=== PATIENT | male | born 1935 | race Caucasian/White ===

== ENCOUNTER 2016-08-19 19:00 | Outpatient (CLI) | payer MEDICARE, MEDICAID | END 2016-08-19 19:01 | disposition home or self-care (01) | DX: N39.0 Urinary tract infection, site not specified (principal) ==

== ENCOUNTER 2016-10-01 19:30 | Outpatient (CLI) | payer MEDICARE, MEDICAID | END 2016-10-01 19:31 | disposition home or self-care (01) | DX: R35.0 Frequency of micturition (principal) ==

== ENCOUNTER 2017-02-08 07:34 | Outpatient (CLI) | payer MEDICARE, MEDICAID ==
[2017-02-08 00:52] LABS: BILIRUBIN,URINE NEGATIVE (NEGATIVE); PH,URINE 5.5 PH (5.0-7.5)
[2017-02-08 01:00] LABS: UA w/ MICROSCOPIC CHARGE YES; WBC,URINE >25 /HPF (0-3)
[2017-02-08 01:01] LABS: UR CULTURE IF IND INDICATED
== END 2017-02-08 07:35 | disposition home or self-care (01) ==
LOC: LAB.R 07:34
DX: N39.0 Urinary tract infection, site not specified (principal)
CPT/HCPCS: 81001; 81003; 87077; 87086

== ENCOUNTER 2017-07-13 20:46 | Outpatient (CLI) | payer MEDICARE, MEDICAID | END 2017-07-13 20:47 | disposition critical access hospital (66) | LOC: EMS 20:46 | PROVIDERS: ATTEND Surgery | DX: M25.522 Pain in left elbow (principal); W18.30XA Fall on same level, unspecified, initial encounter; Y92.129 Unspecified place in nursing home as the place of occurrence of the external cause | CPT/HCPCS: A0425; A0429 ==

== ENCOUNTER 2017-07-13 20:53 | Emergency (ER) | payer MEDICARE, MEDICAID ==
--- NOTE | 2017-07-13 21:02 | ED Physician Documentation ---
PD HPI UPPER EXT INJURY - Stated complaint Stated Complaint: GLF/L ARM SKIN TEAR - History obtained from History obtained from: Patient - History of Present Illness Location: Left, Elbow Type of injury: Fall (fell out of wheelchair) Where injury occurred: Other (COW) Timing - onset: How many minutes ago (approximately 30-40 minutes [employer]) Timing - details: Abrupt onset Pain level now: 2 Improved by: Rest Worsened by: Moving, Palpating Associated symptoms: Swelling Similar symptoms before: Has not had sx before Recently seen: Not recently seen - Additonal information Additional information: fell out of wheelchair tonight, c/o left elbow pain and swelling. Patient is right-hand dominant. Review of Systems Musculoskeletal: reports: Joint pain, Joint swelling. denies: Neck pain, Back pain Neurologic: denies: Focal weakness, Numbness, Headache, Head injury PD PAST MEDICAL HISTORY - Past Medical History Past Medical History: Yes Cardiovascular: Hypertension, High cholesterol - Present Medications Home Medications: Ambulatory Orders Medication Instructions Recorded Confirmed Aspirin [Elkin] 325 01/12/13 01/12/13 Docusate Sodium 250 mg PO BID 01/12/13 01/12/13 Finasteride 01/12/13 01/12/13 Losartan [Cozaar] 25 mg PO DAILY 01/12/13 01/12/13 Mirtazapine 30 01/12/13 01/12/13 Multivitamin [Multi-Day Vitamins] 1 each PO 01/12/13 01/12/13 Sennosides [Senokot] 8.6 01/12/13 01/12/13 Simvastatin 20 01/12/13 01/12/13 Tamsulosin [Flomax] 0.4 mg PO BID 01/12/13 01/12/13 Triamterene/Hydrochlorothiazid 1 each PO 01/12/13 01/12/13 [Triamterene-Hctz 37.5-25 mg Tb] amLODIPine [Norvasc] 10 mg PO BID 01/12/13 01/12/13 - Allergies Allergies/Adverse Reactions: Allergies Allergy/AdvReac Type Severity Reaction Status Date / Time No Known Drug Allergies Allergy Verified 01/12/13 17:28 PD ED PE NORMAL - Vitals Vital signs reviewed: Yes - General General: Alert and oriented X 3, No acute distress, Well developed/nourished - Neck Neck: No bony TTP - Neuro Neuro: Alert and oriented X 3, No motor deficit, No sensory deficit Eye Opening: Spontaneous Motor: Obeys Commands Verbal: Oriented GCS Score: 15 PD ED PE EXPANDED - Extremities Extremities: Other (left elbow swelling and tenderness extensor surface with abrasions. ROM left elbow is intact although pain is exacerbated with movement) Results - Vitals Vitals: Vital Signs - 24 hr 07/13/17 07/14/17 20:55 00:15 Temperature 36.1 C L Heart Rate 90 79 Respiratory 16 18 Rate Blood Pressure 197/73 H 169/76 H O2 Saturation 99 99 Oxygen O2 Source Room air - Rads (name of study) left elbow xrays Radiology: Prelim report reviewed, See rad report PD MEDICAL DECISION MAKING - ED course Complexity details: reviewed results, re-evaluated patient, considered differential, d/w patient Departure - Departure Disposition: 01 Home, Self Care Clinical Impression: Abrasion Elbow injury Qualifiers: Encounter type: initial encounter Laterality: left Qualified Code(s): S59.902A - Unspecified injury of left elbow, initial encounter Condition: Good Instructions: ED Abrasion, ED Bandage Elastic Wrap, ED Contusion Elbow, ED Immunization Tetanus and FU Follow-Up: Dom Frausto MD [Primary Care Provider] - Within 1 week (If not improving ) Discharge Date/Time: 07/14/17 00:15
[2017-07-13] MEDS ORDERED: ACETAMINOPHEN 325 MG TABLET PO STA (21:03)
--- NOTE | 2017-07-13 21:53 | XRAY Preliminary Report ---
Exam: XR ELBOW 3 VIEW LT IMPRESSION: 1. No acute osseous abnormalities are identified. 2. Marked soft tissue swelling along the medial and dorsal left elbow. [facility] SITE ID: [id number]
[2017-07-13] MEDS ORDERED: ACETAMINOPHEN 325 MG TABLET PO ONE (21:56)
--- NOTE | 2017-07-13 21:56 | XRAY Report ---
EXAM: LEFT ELBOW RADIOGRAPHY EXAM DATE: 07/13/2017 09:30 PM. CLINICAL HISTORY: Fall, injury. COMPARISON: None. TECHNIQUE: 3 views. FINDINGS: Bones: No acute fracture or bony lesion. Olecranon enthesophyte is noted. Joints: Mild degenerative changes of the left elbow. No dislocation. Optimal view is not obtained and assessment for elbow effusion. Soft Tissues: Marked soft tissue swelling along the dorsal and medial aspect of the left elbow. IMPRESSION: 1. No acute osseous abnormalities are identified. 2. Marked soft tissue swelling along the medial and dorsal left elbow. [facility] Referring Provider Line: [phone] SITE ID: [id number]
[2017-07-13] MEDS ORDERED: TETANUS/DIPHTHERIA/PERTUSSIS 0.5 ML SYRINGE IM ONE ×2 (22:17→22:27)
[2017-07-13] MEDS ORDERED: BACITRACIN OINT TOP STA (22:17)
[2017-07-13] MEDS ORDERED: BACITRACIN OINT TOP ONE (22:26)
[2017-07-14 00:22] VITALS: BP 169/76
== END 2017-07-14 00:15 | disposition home or self-care (01) ==
LOC: EDUNIT# → ED 20:53
DX: S50.312A Abrasion of left elbow, initial encounter (principal); S59.902A Unspecified injury of left elbow, initial encounter; W05.0XXA Fall from non-moving wheelchair, initial encounter; Z23 Encounter for immunization; I10 Essential (primary) hypertension; E78.00 Pure hypercholesterolemia, unspecified
CPT/HCPCS: 73080; 90471; 90715; 99282; 99284; A9270

== ENCOUNTER 2017-11-15 08:00 | Outpatient (CLI) | payer MEDICARE, MEDICAID ==
[2017-11-15 15:32] LABS: BASOPHILS % (AUTO) 0.6 %; EOSINOPHILS # (AUTO) 0.5 10^3/uL (0.0-0.7); EOSINOPHILS % (AUTO) 6.4 %; HGB - HEMOGLOBIN 13.7 g/dL (14.0-18.0); LYMPHOCYTES # (AUTO) 1.6 10^3/uL (1.5-3.5); LYMPHOCYTES % (AUTO) 21.1 %; MEAN CORPUSCULAR HEMOGLOBIN 31.1 pg (27.0-31.0); MEAN CORPUSCULAR HGB CONC 32.8 g/dL (32.0-36.0); MEAN CORPUSCULAR VOLUME 94.7 fL (80.0-94.0); MEAN PLATELET VOLUME 8.5 fL (7.4-11.4); MONOCYTES # (AUTO) 0.8 10^3/uL (0.0-1.0); MONOCYTES % (AUTO) 10.8 %; NEUTROPHILS # (AUTO) 4.5 10^3/uL (1.5-6.6); NEUTROPHILS % (AUTO) 61.1 %; PLT - PLATELET COUNT 201 10^3/uL (130-450); RED CELL DISTRIBUTION WIDTH 14.6 % (12.0-15.0); WHITE BLOOD COUNT 7.4 x10^3/uL (4.8-10.8)
[2017-11-15 15:44] LABS: ALBUMIN 3.6 g/dL (3.2-5.5); ALBUMIN/GLOBULIN RATIO 1.1 (1.0-2.2); BILIRUBIN,TOTAL 0.3 mg/dL (0.2-1.0); CALCIUM 8.6 mg/dL (8.5-10.3); CREATININE 2.9 mg/dL (0.6-1.2); TOTAL PROTEIN 6.9 g/dL (6.7-8.2)
== END 2017-11-15 08:01 | disposition home or self-care (01) ==
LOC: LAB.R 08:00
DX: N18.4 Chronic kidney disease, stage 4 (severe) (principal); I25.9 Chronic ischemic heart disease, unspecified
CPT/HCPCS: 80053; 85025

== ENCOUNTER 2018-01-26 15:30 | Outpatient (CLI) | payer MEDICARE, MEDICAID ==
[2018-01-26 17:48] LABS: ALBUMIN 3.1 g/dL (3.2-5.5); ALBUMIN/GLOBULIN RATIO 1.1 (1.0-2.2); ALKALINE PHOSPHATASE 69 IU/L (42-121); ALT ALANINE AMINOTRANSFERASE 14 IU/L (10-60); AST ASPARTATE AMINOTRANSFERASE 17 IU/L (10-42); BILIRUBIN,TOTAL < 0.2 mg/dL (0.2-1.0); BUN - BLOOD UREA NITROGEN 49 mg/dL (6-20); CALCIUM 8.3 mg/dL (8.5-10.3); CARBON DIOXIDE - CO2 22 mmol/L (21-32); CHLORIDE 106 mmol/L (101-111); CREATININE 2.7 mg/dL (0.6-1.2); GFR - MDRD 23 (>89); GLUCOSE 136 mg/dL (70-100); SODIUM 138 mmol/L (135-145); TOTAL PROTEIN 5.9 g/dL (6.7-8.2)
[2018-01-26 19:03] LABS: BASOPHILS # (AUTO) 0.1 10^3/uL (0.0-0.1); BASOPHILS % (AUTO) 0.7 %; EOSINOPHILS # (AUTO) 0.5 10^3/uL (0.0-0.7); EOSINOPHILS % (AUTO) 6.5 %; HGB - HEMOGLOBIN 13.1 g/dL (14.0-18.0); LYMPHOCYTES # (AUTO) 1.5 10^3/uL (1.5-3.5); LYMPHOCYTES % (AUTO) 18.2 %; MEAN CORPUSCULAR HEMOGLOBIN 32.5 pg (27.0-31.0); MEAN CORPUSCULAR HGB CONC 33.6 g/dL (32.0-36.0); MEAN CORPUSCULAR VOLUME 96.7 fL (80.0-94.0); MEAN PLATELET VOLUME 8.3 fL (7.4-11.4); MONOCYTES # (AUTO) 0.9 10^3/uL (0.0-1.0); MONOCYTES % (AUTO) 11.1 %; NEUTROPHILS # (AUTO) 5.1 10^3/uL (1.5-6.6); NEUTROPHILS % (AUTO) 63.5 %; PLATELET ESTIMATE, MANUAL NORMAL (130-450,000) (NORMAL); PLATELET MORPHOLOGY NORMAL APPEARANCE (NORMAL); PLT - PLATELET COUNT 214 10^3/uL (130-450); RED BLOOD COUNT 4.02 10^6/uL (4.70-6.10); RED CELL DISTRIBUTION WIDTH 13.5 % (12.0-15.0); WHITE BLOOD COUNT 8.1 x10^3/uL (4.8-10.8)
== END 2018-01-26 15:31 ==
LOC: LAB.R 15:30
DX: N18.4 Chronic kidney disease, stage 4 (severe) (principal); I25.9 Chronic ischemic heart disease, unspecified
CPT/HCPCS: 80053; 85025

== ENCOUNTER 2018-04-21 21:05 | Outpatient (CLI) | payer MEDICARE, MEDICAID | END 2018-04-21 21:06 | disposition home or self-care (01) | LOC: LAB.R 21:05 | DX: I12.9 Hypertensive chronic kidney disease with stage 1 through stage 4 chronic kidney disease, or unspecified chronic kidney disease (principal); N18.4 Chronic kidney disease, stage 4 (severe) | CPT/HCPCS: 80048; 84443 ==

== ENCOUNTER 2018-04-24 21:55 | Outpatient (CLI) | payer MEDICARE, MEDICAID ==
[2018-04-24 22:53] LABS: CALCIUM 8.2 mg/dL (8.5-10.3); CREATININE 3.3 mg/dL (0.6-1.2)
== END 2018-04-24 21:56 | disposition home or self-care (01) ==
LOC: LAB.R 21:55
PROVIDERS: ATTEND Family Medicine
DX: I12.9 Hypertensive chronic kidney disease with stage 1 through stage 4 chronic kidney disease, or unspecified chronic kidney disease (principal); N18.4 Chronic kidney disease, stage 4 (severe)
CPT/HCPCS: 80048; 84443

== ENCOUNTER 2018-05-09 21:50 | Outpatient (CLI) | payer MEDICARE, MEDICAID ==
[2018-05-09 22:55] LABS: CALCIUM 8.1 mg/dL (8.5-10.3); CREATININE 2.6 mg/dL (0.6-1.2)
== END 2018-05-09 21:51 | disposition home or self-care (01) ==
LOC: LAB.R 21:50
DX: I10 Essential (primary) hypertension (principal)
CPT/HCPCS: 80048

== ENCOUNTER 2018-09-02 08:00 | Outpatient (CLI) | payer MEDICARE, MEDICAID ==
[2018-09-02 23:49] LABS: BASOPHILS % (AUTO) 0.6 %; EOSINOPHILS # (AUTO) 0.3 10^3/uL (0.0-0.7); EOSINOPHILS % (AUTO) 5.3 %; HGB - HEMOGLOBIN 11.7 g/dL (14.0-18.0); LYMPHOCYTES % (AUTO) 15.8 %; MEAN CORPUSCULAR HEMOGLOBIN 32.4 pg (27.0-31.0); MEAN CORPUSCULAR HGB CONC 34.1 g/dL (32.0-36.0); MEAN CORPUSCULAR VOLUME 94.9 fL (80.0-94.0); MEAN PLATELET VOLUME 8.4 fL (7.4-11.4); MONOCYTES # (AUTO) 0.5 10^3/uL (0.0-1.0); MONOCYTES % (AUTO) 8.5 %; NEUTROPHILS # (AUTO) 4.4 10^3/uL (1.5-6.6); NEUTROPHILS % (AUTO) 69.8 %; PLT - PLATELET COUNT 189 10^3/uL (130-450); RED BLOOD COUNT 3.61 10^6/uL (4.70-6.10); RED CELL DISTRIBUTION WIDTH 13.6 % (12.0-15.0); WHITE BLOOD COUNT 6.3 x10^3/uL (4.8-10.8)
[2018-09-02 23:56] LABS: ALBUMIN 2.9 g/dL (3.2-5.5); ALBUMIN/GLOBULIN RATIO 1.1 (1.0-2.2); BILIRUBIN,TOTAL 0.5 mg/dL (0.2-1.0); CALCIUM 8.4 mg/dL (8.5-10.3); CREATININE 2.6 mg/dL (0.6-1.2); TOTAL PROTEIN 5.6 g/dL (6.7-8.2)
== END 2018-09-02 23:59 ==
LOC: LAB.R 08:00
DX: N18.4 Chronic kidney disease, stage 4 (severe) (principal); I25.9 Chronic ischemic heart disease, unspecified
CPT/HCPCS: 80053; 85025

== ENCOUNTER 2019-01-01 08:00 | Outpatient (CLI) | payer MEDICARE, MEDICAID ==
[2019-01-01 23:25] LABS: BASOPHILS % (AUTO) 0.4 %; EOSINOPHILS # (AUTO) 0.4 10^3/uL (0.0-0.7); EOSINOPHILS % (AUTO) 3.6 %; HGB - HEMOGLOBIN 12.8 g/dL (14.0-18.0); LYMPHOCYTES # (AUTO) 1.2 10^3/uL (1.5-3.5); LYMPHOCYTES % (AUTO) 11.7 %; MEAN CORPUSCULAR HEMOGLOBIN 31.8 pg (27.0-31.0); MEAN CORPUSCULAR HGB CONC 33.6 g/dL (32.0-36.0); MEAN CORPUSCULAR VOLUME 94.5 fL (80.0-94.0); MEAN PLATELET VOLUME 7.8 fL (7.4-11.4); MONOCYTES # (AUTO) 0.7 10^3/uL (0.0-1.0); MONOCYTES % (AUTO) 7.3 %; NEUTROPHILS # (AUTO) 7.9 10^3/uL (1.5-6.6); PLT - PLATELET COUNT 264 10^3/uL (130-450); RED BLOOD COUNT 4.04 10^6/uL (4.70-6.10); RED CELL DISTRIBUTION WIDTH 13.5 % (12.0-15.0); WHITE BLOOD COUNT 10.2 x10^3/uL (4.8-10.8)
[2019-01-01 23:42] LABS: CALCIUM 8.4 mg/dL (8.5-10.3); CREATININE 3.5 mg/dL (0.6-1.2)
== END 2019-01-01 23:59 | disposition home or self-care (01) ==
LOC: LAB.R 08:00
DX: N18.4 Chronic kidney disease, stage 4 (severe) (principal); I25.9 Chronic ischemic heart disease, unspecified
CPT/HCPCS: 80048; 85025

== ENCOUNTER 2019-01-13 08:00 | Outpatient (CLI) | payer MEDICARE, MEDICAID ==
[2019-01-13 17:14] LABS: CALCIUM 8.1 mg/dL (8.5-10.3)
== END 2019-01-13 23:59 | disposition home or self-care (01) ==
LOC: LAB.R 08:00
DX: I10 Essential (primary) hypertension (principal)
CPT/HCPCS: 80048; 85025

== ENCOUNTER 2019-02-13 20:00 | Outpatient (CLI) | payer MEDICARE, MEDICAID ==
[2019-02-13 20:32] LABS: CALCIUM 8.3 mg/dL (8.5-10.3); CREATININE 3.5 mg/dL (0.6-1.2)
== END 2019-02-13 23:59 | disposition home or self-care (01) ==
LOC: LAB.R 20:00
DX: N18.4 Chronic kidney disease, stage 4 (severe) (principal)
CPT/HCPCS: 80048

== ENCOUNTER 2019-03-15 | Outpatient (CLI) | payer MEDICARE, MEDICAID | END 2019-03-15 23:59 | disposition home or self-care (01) ==

== ENCOUNTER 2019-05-18 15:40 | Outpatient (CLI) | payer MEDICARE, MEDICAID ==
[2019-05-18 17:46] LABS: BILIRUBIN,URINE NEGATIVE (NEGATIVE); GLUCOSE, URINE (UA) NEGATIVE (NEGATIVE); KETONES,URINE (UA) NEGATIVE (NEGATIVE); LEUKOCYTE ESTERASE, URINE SMALL (NEGATIVE); NITRITE,URINE POSITIVE (NEGATIVE); OCCULT BLOOD,URINE LARGE (NEGATIVE); PH,URINE 5.5 PH (5.0-7.5); PROTEIN,URINE 100 mg/dL (NEGATIVE); UROBILINOGEN,URINE 0.2 (NORMAL) E.U./dL (NORMAL)
[2019-05-18 17:47] LABS: CLARITY,URINE HAZY (CLEAR)
[2019-05-18 17:54] LABS: BACTERIA,URINE Many /HPF (None Seen); RBC,URINE TNTC /HPF (0-5); SQUAMOUS EPITHELIAL CELL,UR NONE SEEN (<= Few)
== END 2019-05-18 23:59 | disposition home or self-care (01) ==
LOC: LAB.R 15:40
DX: R31.9 Hematuria, unspecified (principal)
CPT/HCPCS: 81001; 81003; 87086; 87181